=== PATIENT | female | born 1995 | race African-American/Black ===

== ENCOUNTER 2018-03-24 12:51 | Emergency (ER) | payer OTHER ==
[2018-03-24 13:07] VITALS: BP 117/79
--- NOTE | 2018-03-24 13:13 | UC ---
Respiratory Complaint HPI - HPI Summary HPI Summary: A 23 y/o F presents [place] [facility] [place] c/o ongoing coughing for 5 weeks and worsening. The cough is usually productive (clear phlegm) but sometimes not. She is experiencing CP secondary to cough. Denies fevers. [facility]: 03/15/18. Patient says she is not at risk for , and uses control. She is a non-smoker. - History of Current Complaint Stated Complaint: CONGESTION Time Seen by Provider: 03/24/18 13:01 Hx Obtained From: Patient Hx Last Menstrual Period: 03/15/18 Onset/Duration: Lasting Weeks, Still Present Severity Initially: Mild Severity Currently: Mild Pain Intensity: 0 Pain Scale Used: 0-10 Numeric Character: Cough: Nonproductive, Cough: Productive, Sputum Description: - clear Associated Signs And Symptoms: Negative: Fever - Allergies/Home Medications Allergies/Adverse Reactions: Allergies Allergy/AdvReac Type Severity Reaction Status Date / Time metronidazole [From Flagyl] Allergy Dizziness Verified 03/24/18 13:04 Home Medications: Home Medications L.acidoph,Paracasei, B.lactis [Probiotic] 1 each PO DAILY 03/24/18 [History Confirmed 03/24/18] PMH/Surg Hx/FS Hx/Imm Hx Previously Healthy: Yes - pos: osteoarthritis Other Respiratory History: neg: COPD Other Neurological History: neg: dementia - Surgical History Surgical History: Yes Surgery Procedure, Year, and Place: laproscopic abdomen - Family History Known Family History: Positive: Diabetes, Other - pos: heart murmurs - Social History Occupation: Student Lives: Alone Alcohol Use: Rare Substance Use Type: None Smoking Status (MU): Never Smoked Tobacco Review of Systems Constitutional: Negative - fever Respiratory: Cough Cardiovascular: Chest Pain - secondary to cough All Other Systems Reviewed And Are Negative: Yes Physical Exam - Summary Physical Exam Summary: VITAL SIGNS: Reviewed. GENERAL: Patient is a well-developed and nourished FEMALE who is lying comfortable in the stretcher. Patient is not in any acute respiratory distress. HEAD AND FACE: Normocephalic EYES: PERRLA, EOMI x 2. EARS: Hearing grossly intact. MOUTH: Oropharynx within normal limits. NECK: Supple, trachea is midline, no adenopathy, no JVD, no carotid bruit. CHEST: Symmetric, no tenderness at palpation LUNGS: Clear to auscultation bilaterally. No wheezing or crackles. CVS: Regular rate and rhythm, S1 and S2 present, no murmurs or gallops appreciated. ABDOMEN: Soft, non-tender. Bowel sounds are normal. No abdominal abnormal pulsations. EXTREMITIES: Full ROM in all major joints, no edema, no cyanosis or clubbing. NEURO: Alert and oriented x 3. No acute neurological deficits. Speech is normal and follows commands. SKIN: Dry and warm Triage Information Reviewed: Yes Vital Signs: Initial Vital Signs Temp 97.8 F 03/24/18 13:00 Pulse 76 03/24/18 13:00 Resp 16 03/24/18 13:00 BP 117/79 03/24/18 13:00 Pulse Ox 100 03/24/18 13:00 Vital Signs Reviewed: Yes Diagnostic Evaluation - Laboratory O2 Sat by Pulse Oximetry: 100 - Radiology Xray Interpretation: No Acute Changes - IMPRESSION: No active cardiopulmonary dz. [facility] provider has reviewed this reports. Radiology Interpretation Completed By: Radiologist Respiratory Course/Dx - Course Course Of Treatment: This patient is a 23-year-old female who presents to the urgent care with chief complaint of having intermittent productive and dry cough. Physical exam the patient's lungs are clear to auscultation bilaterally , there is no wheezing or crackles. Chest x-ray shows no acute pathology. Patient was given Tessalon tablets for the cough. She was urged to follow-up with primary care physician for follow-up. She is hemodynamically stable alert and oriented 3. - Differential Dx/Diagnosis Provider Diagnoses: Cough likely viral etiology. Discharge - Sign-Out/Discharge Documenting (check all that apply): Patient Departure - DC All imaging exams completed and their final reports reviewed: Yes - Discharge Plan Condition: Stable Disposition: HOME Prescriptions: Benzonatate CAP* [Tessalon 100 MG CAP*] 100 mg PO TID PRN #12 cap PRN Reason: Cough Patient Education Materials: Chronic Cough (ED) Referrals: [facility] [place] PHYSICIAN REFERRAL [Outside] No Primary Care Phys,NOPCP [Primary Care Provider] - Additional Instructions: Take medications as instructed and adhere to plan Take Acetaminophen or ibuprofen for pain or fever Increase your fluid intake Return to the or go to the emergency department if symptoms worsen Follow-up with primary care physician in next 2-3 days - Billing Disposition and Condition Condition: STABLE Disposition: Home - Attestation Statements Document Initiated by Herberthe: Yes Documenting Scribe: Kay Sanchez Provider For Whom Supriya is Documenting (Include Credential): Allan Goldberg MD Scribe Attestation: I, Kay Sanchez, scribed for Allan Goldberg MD on 03/24/18 at 1415. Scribe Documentation Reviewed: Yes Provider Attestation: The documentation as recorded by the Kay augustine accurately reflects the service I personally performed and the decisions made by me, Allan Goldberg MD
--- NOTE | 2018-03-24 13:45 | RAD ---
HISTORY: productive cough COMPARISONS: September 20, 2014 VIEWS: 4: Frontal dual-energy and lateral views of the chest. FINDINGS: CARDIOMEDIASTINAL SILHOUETTE: The cardiomediastinal silhouette is normal. SULY: The suly are normal. PLEURA: The costophrenic angles are sharp. No pleural abnormalities are noted. LUNG PARENCHYMA: The lungs are clear. ABDOMEN: The upper abdomen is clear. There is no subphrenic gas. BONES AND SOFT TISSUES: No bone or soft tissue abnormalities are noted. OTHER: Metallic jewelry is noted in relation to the nipples.. IMPRESSION: NO ACTIVE CARDIOPULMONARY DISEASE.
== END 2018-03-24 13:55 | disposition home or self-care (01) ==
LOC: UCEAST 12:51
DX: R05 Cough (principal); R07.9 Chest pain, unspecified; Z88.1 Allergy status to other antibiotic agents
CPT/HCPCS: 71046; 99212; G0463

== ENCOUNTER 2018-09-15 08:05 | Emergency (ER) | payer OTHER ==
[2018-09-15 08:12] VITALS: BP 111/53
--- NOTE | 2018-09-15 09:32 | UC ---
Complaint Female HPI - HPI Summary HPI Summary: WOKE UP THIS MORNING WITH DYSURIA, URINARY FREQUENCY AND URGENCY. NO FEVER, BACK PAIN, NAUSEA. - History Of Current Complaint Chief Complaint: UCGU Stated Complaint: POSS UTI Time Seen by Provider: 09/15/18 08:28 Hx Obtained From: Patient Hx Last Menstrual Period: 08/29/18 Onset/Duration: Sudden Onset, Lasting Hours, Still Present Timing: Constant Severity Initially: Moderate Severity Currently: Moderate Pain Intensity: 6 Pain Scale Used: 0-10 Numeric Character: Burning Aggravating Factor(s): Urination Alleviating Factor(s): Nothing Associated Signs And Symptoms: Negative: Fever, Back Pain, Vaginal Discharge, Nausea - Allergies/Home Medications Allergies/Adverse Reactions: Allergies Allergy/AdvReac Type Severity Reaction Status Date / Time metronidazole [From Flagyl] Allergy Dizziness Verified 09/15/18 08:13 PMH/Surg Hx/FS Hx/Imm Hx Previously Healthy: Yes - Surgical History Surgical History: Yes Surgery Procedure, Year, and Place: laproscopic abdomen - Family History Known Family History: Positive: Diabetes, Other - pos: heart murmurs - Social History Alcohol Use: Rare Substance Use Type: None Smoking Status (MU): Never Smoked Tobacco Review of Systems All Other Systems Reviewed And Are Negative: Yes Constitutional: Positive: Negative Respiratory: Positive: Negative Cardiovascular: Positive: Negative Gastrointestinal: Positive: Abdominal Pain Genitourinary: Positive: Dysuria, Frequency, Urgency Physical Exam Triage Information Reviewed: Yes Appearance: Well-Appearing, No Pain Distress, Well-Nourished Vital Signs: Initial Vital Signs Temp 97.9 F 09/15/18 08:09 Pulse 57 09/15/18 08:09 Resp 16 09/15/18 08:09 BP 111/53 09/15/18 08:09 Pulse Ox 100 09/15/18 08:09 Laboratory Tests 09/15/18 08:28 POC Urine Color [place]ielka POC Urine Clarity Cloudy POC Urine pH 6.0 POC Ur Specif [place] >= 1.030 POC Urine Protein 2+ A POC Ur Glucose (UA) Negative POC Urine Ketones Negative POC Urine Blood 3+ A POC Urine Nitrite Negative POC Urine Bilirubin Negative POC Urine Urobilinogen 0.2 POC U Leukocyte Esteras 3+ A Vital Signs Reviewed: Yes Eyes: Positive: Conjunctiva Clear ENT: Positive: Hearing grossly normal Neck: Positive: Supple Respiratory: Positive: No respiratory distress, No accessory muscle use Cardiovascular: Positive: Pulses Normal Abdomen Description: Positive: Soft, Other: - MILDLY TENDER SUPRAPUBIC. Negative: CVA Tenderness (R), CVA Tenderness (L), Distended, Guarding Musculoskeletal: Positive: No Edema Neurological: Positive: Alert Psychological: Positive: Age Appropriate Behavior Skin: Negative: Rashes Complaint Female Dx - Differential Dx/Diagnosis Provider Diagnosis: UTI (urinary tract infection) Discharge - Sign-Out/Discharge Documenting (check all that apply): Patient Departure All imaging exams completed and their final reports reviewed: No Studies - Discharge Plan Condition: Stable Disposition: HOME Prescriptions: Phenazopyridine TAB* [Pyridium TAB*] 200 mg PO TID #6 tab Sulfamethox/Trimethoprim DS* [Bactrim DS 800/160 TAB*] 1 tab PO BID #10 tab Patient Education Materials: Urinary Tract Infection in Women (ED) Referrals: Replaced By [facility] [Provider Group] - If Needed - Billing Disposition and Condition Condition: STABLE Disposition: Home
--- NOTE | 2018-09-17 16:09 | UC ---
- Progress Note Progress Note: 09/17/2018 Urine culture return positive for E.Coli Pt Rx Bactrim PO Final sensitivity reports shows resistance to Bactrim PO Please call back Pt and inform her of results and advised a new Rx Macrobid PO was sent ot pharmacy Thank you Jessika Saleh PA-C Course/Dx - Diagnoses Provider Diagnoses: UTI (urinary tract infection) Discharge - Sign-Out/Discharge Documenting (check all that apply): Patient Departure - d/c home All imaging exams completed and their final reports reviewed: No Studies - Discharge Plan Condition: Stable Disposition: HOME Prescriptions: Nitrofurantoin Monohyd/M-Cryst [Macrobid 100 mg Capsule] 100 mg PO BID #10 cap Phenazopyridine TAB* [Pyridium TAB*] 200 mg PO TID #6 tab Patient Education Materials: Urinary Tract Infection in Women (ED) [facility] - If Needed - Billing Disposition and Condition Condition: STABLE Disposition: Home
== END 2018-09-15 09:33 | disposition home or self-care (01) ==
LOC: UCEAST 08:05
DX: N39.0 Urinary tract infection, site not specified (principal); Z88.1 Allergy status to other antibiotic agents
CPT/HCPCS: 81003; 87077; 87086; 87186; 99212; G0463

== ENCOUNTER 2019-05-02 23:27 | Emergency (ER) | payer OTHER ==
[2019-05-03] MEDS ORDERED: Triamcinolone 0.025% OINT * 15 GM TUBE TOPICAL ONE (00:15)
[2019-05-03] MEDS ORDERED: Triamcinolone 0.1% CREAM (NF) 15 GM TUBE TOPICAL ONE (00:15)
--- NOTE | 2019-05-03 00:29 | ED ---
Skin Complaint - HPI Summary HPI Summary: Pt is a 24 y/o F presenting to the ED with a chief skin complaint. She states she was in [place], [place], a few days ago, and after the 2nd night she noticed numerous bumps and welts on different places on her body. Then, today, she reports suddenly feeling pruritus and then noticing about 30 total welts and bumps on her body. 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 She denies fever. She denies seeing any bugs. - History of Current Complaint Chief Complaint: EDRashSkinAbscess Time Seen by Provider: 05/02/19 23:55 Stated Complaint: HIVES PER PT Hx Obtained From: Patient Hx Last Menstrual Period: 08/29/18 Onset/Duration: Started Days Ago, Still Present, Worse Since - today Skin Exposure Onset/Duration: Days Ago Timing: Constant, Lasting Days Onset Severity: Mild Current Severity: None Pain Intensity: 0 Pain Scale Used: 0-10 Numeric Skin Location: Diffuse Character: Pruritus, Hives, Redness Aggravating Symptom(s): Nothing Alleviating Symptom(s): Nothing Associated Signs & Symptoms: Rash - Allergy/Home Medications Allergies/Adverse Reactions: Allergies Allergy/AdvReac Type Severity Reaction Status Date / Time metronidazole [From Flagyl] Allergy Dizziness Verified 09/15/18 08:13 PMH/Surg Hx/FS Hx/Imm Hx Previously Healthy: Yes Endocrine/Hematology History: Denies: Hx Diabetes, Hx Systemic Lupus Erythematosus Cardiovascular History: Denies: Hx Congestive Heart Failure, Hx Hypertension Respiratory History: Reports: Other Respiratory Problems/Disorders - pnuemonia GI History: Reports: Other GI Disorders - nausea for 1 1/2 weeks r/t newell ? per pt History: Denies: Hx Dialysis, Hx Renal Disease Musculoskeletal History: Reports: Other Musculoskeletal History - lower back Denies: Hx Rheumatoid Arthritis Sensory History: Denies: Hx Contacts or Glasses Opthamlomology History: Denies: Hx Contacts or Glasses Neurological History: Reports: Other Neuro Impairments/Disorders - OSTEOARTHRITIS - Cancer History Hx Chemotherapy: No - Surgical History Surgery Procedure, Year, and Place: laproscopic abdomen - Immunization History Immunizations Up to Date: Yes Infectious Disease History: No Infectious Disease History: Denies: Traveled Outside the [place] in Last 30 Days - Family History Known Family History: Positive: Diabetes, Other - pos: heart murmurs - Social History Occupation: Student Alcohol Use: Occasionally Hx Substance Use: No Substance Use Type: Reports: None Hx Tobacco Use: No Smoking Status (MU): Never Smoked Tobacco Review of Systems Negative: Fever Positive: Rash, Other - pruritus All Other Systems Reviewed And Are Negative: Yes Physical Exam - Summary Physical Exam Summary: General: Well appearing, no distress Cardiovascular: Skin is well perfused Pulmonary: No respiratory distress, no tachypnea Abdomen: Non-distended Skin: Warm, Dry. Papular urticaria to the R forearm, L forearm, and R zoroastrian. MSK: no edema Psych: Normal affect Neuro: A&Ox3 Triage Information Reviewed: Yes Vital Signs On Initial Exam: Initial Vitals Temp Pulse Resp BP Pulse Ox 97.5 F 76 18 174/100 98 05/02/19 23:31 05/02/19 23:31 05/02/19 23:31 05/02/19 23:31 05/02/19 23:31 Vital Signs Reviewed: Yes Diagnostics - Vital Signs Vital Signs Temp Pulse Resp BP Pulse Ox 05/02/19 23:31 97.5 F 76 18 174/100 98 - Laboratory Lab Statement: Any lab studies that have been ordered have been reviewed, and results considered in the medical decision making process. Course/Dx - Course Course Of Treatment: 24 y/o F p/w uticarial rash to arms and face. - possible bug bite (chigger vs bed bugs). Not in typical pattern for chiggers. Has not seen any bed bugs but did wash sheets and dry them 3 times to get rid of any potential bugs. Rash not c/w scabies. - send home on triamcinolone cream for comfort. - Diagnoses Provider Diagnoses: Bug bite Discharge ED - Sign-Out/Discharge Documenting (check all that apply): Patient Departure Patient Received Moderate/Deep Sedation with Procedure: No - Discharge Plan Condition: Stable Disposition: HOME Prescriptions: Triamcinolone 0.1% CREAM(NF) [Kenalog Cream 0.1%(NF)] 1 applic TOPICAL BID 7 Days #1 tube Patient Education Materials: Insect Bite or Sting (ED) Referrals: [facility] [Outside] Additional Instructions: You were seen in the emergency department for a rash. This is likely secondary to a bug bite. You can take triamcinolone cream and apply to your skin. If you see bed bugs: Once infestation is confirmed through the detection and correct identification of bedbugs, measures to eradicate infestation can be implemented. Eradication of bedbugs is difficult. Control of infestations requires an experienced pest project management analyst. Victims should refrain from attempting control measures themselves Preferred methods of eradication include application of insecticides and heat treatment. Combinations of insecticides are generally used to avoid failure due to resistance. Use of long-lasting residual insecticides can be necessary for heavy infestations. Heat treatment involves use of equipment to heat rooms to a lethal temperature. All stages of bedbugs can be killed at 50C (122F) . When insecticides and heat treatment are not feasible, physical removal of bedbugs may reduce the severity of infestation, although it is unlikely to completely eradicate the infestation. A thin plastic card or a thin-bladed paint scraper can be used to dig bedbugs out of cracks and crevices. Placement of interceptor (pitfall) traps at the base of beds and furniture may aid in control of bedbug infestations ]. Pyrethroid-treated bednets and mattress encasements may reduce the number of bites, but resistance to pyrethroids is present in some bedbug populations Supplemental methods to reduce the number of bedbugs can aid in eradicating infestations and include vacuuming and laundering or freezing bedding and other infested fabrics. Items that are laundered should be washed and dried in a dryer on a hot setting to kill bedbugs. The duration of freezing required is dependent on freezer temperature, with higher temperatures requiring longer freeze durations . For home freezers with a typical target temperature of -18C (0F), freezing infested items for at least three to four days can be sufficient PREVENTIONCertain measures may be helpful for preventing bedbug infestation ?Visual examination of hotel rooms or other new sleeping areas for bedbugs or bedbug feces prior to use, with particular attention to mattress cords and crevices in box springs. ?Placement of luggage on a luggage rack or away from the bed while traveling. Placement of worn garments in a sealed plastic bag to minimize bedbug attraction to worn clothing. ?Careful examination of "used" items, such as items from garage sales or resale shops (especially bedding items), for bedbugs or bedbug feces prior to bringing them inside the home. https://www.[employer].LightUp/contents/bedbugs?search=bed%20bug%20treatment& sectionRank=2&usage_type=default&anchor=H9&source=machineLearning&selectedTitle= 1~19&display_rank=1#H9 . - Billing Disposition and Condition Condition: STABLE Disposition: Home - Attestation Statements Document Initiated by Scribe: Yes Documenting Scribe: Chaparrita Dillon Provider For Whom Supriya is Documenting (Include Credential): Marquita Reynolds MD. Scribe Attestation: Chaparrita Wilson, scribed for Marquita Reynolds MD. on 05/03/19 at 0121. Scribe Documentation Reviewed: Yes Provider Attestation: The documentation as recorded by the scribe, Chaparrita Dillon accurately reflects the service I personally performed and the decisions made by Marquita coon MD. Status of Scribe Document: Ready
[2019-05-03 01:19] VITALS: BP 135/86
== END 2019-05-03 01:01 | disposition home or self-care (01) ==
LOC: ED 23:27
DX: T14.8XXA Other injury of unspecified body region, initial encounter (principal); R21 Rash and other nonspecific skin eruption; W57.XXXA Bitten or stung by nonvenomous insect and other nonvenomous arthropods, initial encounter; Y92.9 Unspecified place or not applicable
CPT/HCPCS: 99282; A9270-GY

== ENCOUNTER 2019-05-08 12:47 | Emergency (ER) | payer OTHER ==
[2019-05-08 12:53] VITALS: BP 117/74
--- NOTE | 2019-05-08 13:37 | ED ---
GI/ HPI - HPI Summary HPI Summary: 24 yo BF p/w urinary frquency/urgency and dysuria - History of Current Complaint Chief Complaint: UCGU Time Seen by Provider: 05/08/19 12:58 Stated Complaint: URINARY COMPLAINT Hx Obtained From: Patient Hx Last Menstrual Period: 05/08/19 Timing: Constant Severity: Moderate Current Severity: Moderate Pain Intensity: 0 - Allergy/Home Medications Allergies/Adverse Reactions: Allergies Allergy/AdvReac Type Severity Reaction Status Date / Time metronidazole [From Flagyl] Allergy Dizziness Verified 05/08/19 12:53 PMH/Surg Hx/FS Hx/Imm Hx Previously Healthy: Yes Endocrine/Hematology History: Denies: Hx Diabetes, Hx Systemic Lupus Erythematosus, Hx Thyroid Disease Cardiovascular History: Denies: Hx Congestive Heart Failure, Hx Hypertension Respiratory History: Reports: Other Respiratory Problems/Disorders - pnuemonia Denies: Hx Asthma, Hx Chronic Obstructive Pulmonary Disease (COPD) GI History: Reports: Other GI Disorders - nausea for 1 1/2 weeks r/t newell ? per pt Denies: Hx Ulcer History: Denies: Hx Dialysis, Hx Renal Disease Musculoskeletal History: Reports: Other Musculoskeletal History - lower back Denies: Hx Rheumatoid Arthritis Sensory History: Denies: Hx Contacts or Glasses Opthamlomology History: Denies: Hx Contacts or Glasses Neurological History: Reports: Other Neuro Impairments/Disorders - OSTEOARTHRITIS - Cancer History Hx Chemotherapy: No - Surgical History Surgery Procedure, Year, and Place: laproscopic abdomen Infectious Disease History: No Infectious Disease History: Denies: Hx Hepatitis, Hx Human Immunodeficiency Virus (HIV), Traveled Outside the [place] in Last 30 Days - Family History Known Family History: Positive: Diabetes, Other - pos: heart murmurs, Non- Contributory - Social History Alcohol Use: Rare Hx Substance Use: No Substance Use Type: Reports: None Hx Tobacco Use: No Smoking Status (MU): Never Smoked Tobacco Review of Systems Constitutional: Negative Eyes: Negative ENT: Negative Cardiovascular: Negative Respiratory: Negative Positive: see HPI, burning, dysuria, frequency, urgency Musculoskeletal: Negative Skin: Negative All Other Systems Reviewed And Are Negative: Yes Physical Exam - Summary Physical Exam Summary: Vital Signs Reviewed: Yes Eye Exam: Normal Eyes: Positive: Conjunctiva Clear ENT: Positive: Normal ENT inspection Neck: Positive: Supple Respiratory Exam: Normal Respiratory: Positive: Lungs clear Cardiovascular Exam: Normal Cardiovascular: Positive: RRR Abdomen: NT/ND, no suprapubic or CVA tenderness Musculoskeletal Exam: Normal Neurological Exam: Normal Psychological Exam: Normal Skin Exam: Normal Vital Signs On Initial Exam: Initial Vitals Temp Pulse Resp BP Pulse Ox 36.1 C 60 18 117/74 100 05/08/19 12:50 05/08/19 12:50 05/08/19 12:50 05/08/19 12:50 05/08/19 12:50 Diagnostics - Vital Signs Vital Signs Temp Pulse Resp BP Pulse Ox 05/08/19 12:50 36.1 C 60 18 117/74 100 - Laboratory Lab Results: Lab Results 05/08/19 Range/Units 12:58 POC Urine Color Dark yellow POC Urine Clarity Slightly cloudy POC Urine pH 6.0 (5-9) POC Ur Specif [place] >= 1.030 (1.010-1.030) POC Urine Protein 1+ A (Negative) POC Ur Glucose (UA) Negative (Negative) POC Urine Ketones Negative (Negative) POC Urine Blood 2+ A (Negative) POC Urine Nitrite Negative (Negative) POC Urine Bilirubin Negative (Negative) POC Urine Urobilinogen 0.2 (Negative) POC U Leukocyte Esteras Trace A (Negative) Lab Statement: Any lab studies that have been ordered have been reviewed, and results considered in the medical decision making process. GIGU Course/Dx - Diagnoses Differential Diagnoses - Female: Urinary Tract Infection Provider Diagnoses: UTI (urinary tract infection) Discharge ED - Sign-Out/Discharge Documenting (check all that apply): Patient Departure All imaging exams completed and their final reports reviewed: No Studies - Discharge Plan Condition: Stable Disposition: HOME Prescriptions: Nitrofurantoin Monohyd/M-Cryst [Macrobid 100 mg Capsule] 100 mg PO BID 5 Days # 10 cap Patient Education Materials: Urinary Tract Infection in Women (ED) Referrals: No Primary Care Phys,NOPCP [Primary Care Provider] - - Billing Disposition and Condition Condition: STABLE Disposition: Home
== END 2019-05-08 13:40 | disposition home or self-care (01) ==
LOC: UCEAST 12:47
DX: N39.0 Urinary tract infection, site not specified (principal); M19.90 Unspecified osteoarthritis, unspecified site; Z88.1 Allergy status to other antibiotic agents
CPT/HCPCS: 81003; 87077; 87086; 99212; G0463